=== PATIENT | female | born 2000 | race Caucasian/White ===

== ENCOUNTER 2020-09-02 02:13 | Emergency (ER) | payer SELFPAY ==
[~2020-09-02] VITALS: Ht 160 cm; Wt 52.3 kg
[2020-09-02 02:15] VITALS: BP 126/92
--- NOTE | 2020-09-02 02:23 | PHYS DOC ---
Past Medical History Past Medical History: No Pertinent History Past Medical History Limited secondary to intoxication Past Surgical History: No Surgical History Past Surgical History Limited secondary to intoxication Smoking Status: Never Smoker Alcohol Use: Heavy Drug Use: None Social History Limited secondary to intoxication General Adult EDM: Chief Complaint: ALCOHOL INTOXICATION HPI: HPI: 20-year-old female presents via EMS with report of being found yelling and screaming at someone's door while under the influence of alcohol. Patient does report drinking several "shots of rum." Patient also noted by EMS to have abr asions to both knees. Patient does report she fell but does not recall the events causing it. Patient denies any headache. Denies . Patient reports "I hate hospitals and doctors and I hate you (toward EMS)." Patient reports she just wants her "mom and dad ". History of present illness limited secondary to intoxication. Review of Systems: Review of Systems: Review of systems limited secondary to intoxication. Heart Score: C/O Chest Pain: N/A Physical Exam: PE: Constitutional: Well developed, well nourished, tearful, non-toxic appearance HENT: Normocephalic, atraumatic Eyes: Conjunctiva injected bilaterally, no discharge, horizontal nystagmus noted Neck: Normal range of motion, no tenderness, supple Lungs & Thorax: No respiratory distress, equal chest rise and fall Abdomen: Soft, no tenderness Skin: Warm, dry, no erythema, superficial abrasions noted to bilateral anterior knees Extremities: No tenderness, ROM intact, no edema Neurologic: Awake but intoxicated, tearful, no focal deficits noted Psychologic: Affect agitated, judgment abnormal EKG: EKG: [] Radiology/Procedures: Radiology/Procedures: [] Course & Med Decision Making: Course & Med Decision Making Patient presents via EMS under the influence of alcohol. Patient noted to have some small abrasions to her anterior knees. Patient reports she just wants to go home. Reports she wants her "mom and dad ". Patient's mother called and notified regarding patient's condition. Brother to present to ER to take patient home. Patient allowed to sober in emergency department. Patient stable for discharge under care of family with outpatient follow-up with PCP. Discussed findings and plan with patient and family, who acknowledge understanding and agreement. Bharat Disclaimer: Bharat Disclaimer: This electronic medical record was generated, in whole or in part, using a voice recognition dictation system. Departure Departure Impression: Primary Impression: Alcohol intoxication Qualified Codes: F10.929 - Alcohol use, unspecified with intoxication, unspecified Additional Impression: Abrasions of multiple sites Disposition: 01 HOME / SELF CARE / HOMELESS Condition: STABLE Patient Instructions: Abrasion, [id number], Alcohol Intoxication, [id number], Alcohol, FAQs Additional Instructions: Do not soak your wound. You may shower. Clean wound daily with soap and water. Change dressing 2 times daily. Use over the counter antibiotic ointment with each dressing change. Please call [facility] at to seek help for your mental health and/or drug/alcohol abuse. EVENS SOLANO DO Sep 02, 2020 02:23
[2020-09-02] MEDS ORDERED: NEOMY/BACITR/POLYMYXIN OINT PACKET. TP ONE ×2 (02:30→03:26)
== END 2020-09-02 03:30 | disposition home or self-care (01) ==
LOC: ER 02:13
DX: S80.212A Abrasion, left knee, initial encounter (principal); S80.211A Abrasion, right knee, initial encounter; R07.89 Other chest pain; F10.20 Alcohol dependence, uncomplicated; Y90.9 Presence of alcohol in blood, level not specified; W18.39XA Other fall on same level, initial encounter; Y93.89 Activity, other specified; Y92.89 Other specified places as the place of occurrence of the external cause; Y99.8 Other external cause status
CPT/HCPCS: 99283